=== PATIENT | male | born 1970 | race Hispanic/Latino ===

== ENCOUNTER 2017-04-02 09:25 | Inpatient (IN) | payer OTHER, MEDICAID ==
[2017-04-02 09:30] VITALS: BMI 22.1
--- NOTE | 2017-04-02 09:34 | ED PDOC ---
Psych Transfer Clearance - Clearance Statement Clearance Statement: Reviewed vital signs, lab results and transfer papers. Patient clinically stable for psychiatric admission.
[2017-04-02] MEDS ORDERED: DiphenhydrAMINE 50 mg/ml Inj IM PRN (11:18)
[2017-04-02] MEDS ORDERED: Alum-Mag Hydrox-Simethicone Susp (30 mL) PO PRN (11:18)
[2017-04-02] MEDS ORDERED: Magnesium Hydroxide Susp 30 ml UD PO PRN (11:18)
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
--- NOTE | 2017-04-02 13:54 | PCM.BM ---
Treatment Plan Problems - Problems identified on initial assessmt Problem 1 Date Initiated: 04/02/17 Treatment assets and liabiliti Patient Assests: adapts well, cooperative, resourceful, self-reliant, ADL independent, negotiates basic needs Patient Liabilities: live alone, financial problems, poor support system, relationship conflicts - Milieu Protocol Maintain good personal hygiene: daily Encourage regular showers, daily Remind patient to perform daily oral care, daily Assist patient to perform ADL's Maintain personal safety: every shift Educate patient to report safety concerns to staff, every shift Monitor environment for contraband/sharps Medication safety: Monitor for expected outcome, potential side effects: every shift, Assess barriers to learning: every shift, Assess readiness for medication education: every shift Milieu Narrative: admit to 3np for safety and observation gather collateral information neurology/hospitalist consult restart medications encourage participation in groups disposition planning Discharge/Continuing Care - Treatment Team Participation Patient/Family/SO Statement: admit to 3np for safety and observation gather collateral information neurology/hospitalist consult restart medications encourage participation in groups disposition planning
--- NOTE | 2017-04-02 14:14 | PCM.BM ---
<Adriana Burciaga - Last Filed: 04/02/17 14:25> Treatment Plan Problems - Problems identified on initial assessmt Social Isolation Date Initiated: 04/02/17 Time Initiated: 14:26 Assessment reference: NA Status: Active Treatment assets and liabiliti Patient Assests: adapts well, cooperative, resourceful, self-reliant, ADL independent, negotiates basic needs Patient Liabilities: live alone, financial problems, poor support system, relationship conflicts - Milieu Protocol Maintain good personal hygiene: daily Encourage regular showers, daily Remind patient to perform daily oral care, daily Assist patient to perform ADL's Maintain personal safety: every shift Educate patient to report safety concerns to staff, every shift Monitor environment for contraband/sharps Medication safety: Monitor for expected outcome, potential side effects: every shift, Assess barriers to learning: every shift, Assess readiness for medication education: every shift Milieu Narrative: admit to 3np for safety and observation gather collateral information neurology/hospitalist consult restart medications encourage participation in groups disposition planning Discharge/Continuing Care - Treatment Team Participation Patient/Family/SO Statement: admit to 3np for safety and observation gather collateral information neurology/hospitalist consult restart medications encourage participation in groups disposition planning <Ronal Ocampo - Last Filed: 04/03/17 09:59> Family Contact Family involvement: No known Family/SO Family contact name: Pt denied family/SO - Goals for Treatment Patient goals for treatment: Reduction of depressive symptoms and SI. Discharge/Continuing Care - Education Needs Education Needs: Patient Medication, Patient Coping Skills, Patient Community resources, Patient Aftercare Safety Plan - Discharge Discharge Criteria: Free of Suicidal thoughts, Free of agitation, Normal sleep pattern, Reduction of target symptoms Discharge to:: Home - Treatment Team Participation Discussed with Family/SO: No
--- NOTE | 2017-04-02 15:48 | CP.PCM.CON ---
History of Present Illness - History of Present Illness History of Present Illness: 46 yo male with history of Seizure DO secondary to head trauma and Asthma admitted to psyche unit because of suicidal intent. Review of Systems - Review of Systems All systems: reviewed and no additional remarkable complaints except (aside from those mentioned above, 12 point system review were negative by me) Past Patient History - Tetanus Immunizations Tetanus Immunization: Unknown - Past Social History Smoking Status: Heavy Smoker > 10 Cigarettes Daily Alcohol: None Drugs: Denies - CARDIAC Hx Cardiac Disorders: No - PULMONARY Hx Respiratory Disorders: Yes Hx Asthma: Yes (x 10 yrs) - NEUROLOGICAL Hx Neurological Disorder: No - HEENT Hx HEENT Problems: No - RENAL Hx Chronic Kidney Disease: No - ENDOCRINE/METABOLIC Hx Endocrine Disorders: No - HEMATOLOGICAL/ONCOLOGICAL Hx Blood Disorders: No - INTEGUMENTARY Hx Dermatological Problems: No - MUSCULOSKELETAL/RHEUMATOLOGICAL Hx Musculoskeletal Disorders: No Other/Comment: hx sugery to l shoulder 10 yrs ago - GASTROINTESTINAL Hx Gastrointestinal Disorders: No - GENITOURINARY/GYNECOLOGICAL Hx Genitourinary Disorders: No - PSYCHIATRIC Hx Depression: Yes Hx Physical Abuse: No Hx Sexual Abuse: No Hx Substance Use: No - SURGICAL HISTORY Hx Surgeries: No Hx Open Reduction Internal Fixation: Yes (ORIF of fractured right metatarsals, left shoulder surgery) Hx Orthopedic Surgery: Yes (ORIF of fractured right metatarsals, left shoulder surgery) - ANESTHESIA Hx Anesthesia: Yes Hx Anesthesia Reactions: No Meds Allergies/Adverse Reactions: Allergies Allergy/AdvReac Type Severity Reaction Status Date / Time No Known Allergies Allergy Verified 04/02/17 09:32 - Medications Medications: Current Medications Acetaminophen (Tylenol 325mg Tab) 650 mg PO Q4 PRN PRN Reason: Pain, moderate (4-7) Al Hydrox/Mg Hydrox/Simethicone (Maalox Plus 30 Ml) 30 ml PO Q4 PRN PRN Reason: Dyspepsia Diphenhydramine HCl (Benadryl) 50 mg IM Q6 PRN PRN Reason: Extrapyramidal S/S Unable PO Diphenhydramine HCl (Benadryl) 50 mg PO Q6 PRN PRN Reason: Extrapyramidal Symptoms Duloxetine HCl (Cymbalta) 60 mg PO DAILY PRIYANKA Gabapentin (Neurontin) 600 mg PO TID PRIYANKA Last Admin: 04/02/17 12:32 Dose: 600 mg Haloperidol (Haldol) 5 mg PO Q4 PRN PRN Reason: Agitation Haloperidol Lactate (Haldol) 5 mg IM Q4 PRN PRN Reason: Agitation, Unable to Take PO Lorazepam (Ativan) 2 mg IM Q4 PRN PRN Reason: Anxiety/Agitation,Unable PO Lorazepam (Ativan) 2 mg PO Q4 PRN PRN Reason: Anxiety/Agitation Magnesium Hydroxide (Milk Of Magnesia) 30 ml PO HS PRN PRN Reason: Constipation Nicotine (Nicoderm Cq) 1 patch TD DAILY [facility] Last Admin: 04/02/17 12:32 Dose: 1 patch Phenobarbital (Phenobarbital Tab) 60 mg PO Q8H [facility] Last Admin: 04/02/17 12:31 Dose: 60 mg Prazosin HCl (Minipress) 1 mg PO AMHS [facility] Physical Exam - Constitutional Appears: No Acute Distress - Head Exam Head Exam: ATRAUMATIC - Eye Exam Eye Exam: absent: Scleral icterus - ENT Exam ENT Exam: Mucous Membranes Moist - Neck Exam Neck exam: Negative for: Meningismus - Respiratory Exam Respiratory Exam: absent: Rhonchi, Wheezes, Respiratory Distress - Cardiovascular Exam Cardiovascular Exam: REGULAR RHYTHM, +S1, +S2 - GI/Abdominal Exam GI & Abdominal Exam: Soft. absent: Tenderness - Rectal Exam Rectal Exam: Deferred - Extremities Exam Extremities exam: Negative for: calf tenderness, pedal edema - Neurological Exam Neurological exam: Alert, Oriented x3 - Psychiatric Exam Psychiatric exam: Normal Affect - Skin Skin Exam: Dry, Intact Results - Vital Signs Recent Vital Signs: Last Vital Signs Temp 98.2 F 04/02/17 09:27 Pulse 77 04/02/17 09:27 Resp 20 04/02/17 10:51 BP 113/65 04/02/17 09:27 Pulse Ox 98 04/02/17 09:33 Assessment & Plan (1) Suicidal intent Status: Acute Comment: psyche is managing (2) Seizure disorder Status: Acute Priority: Medium Comment: on Phenobarbital 60mg PO q 8hrs. Neurontin 600mg PO TID (3) Asthma Status: Acute Comment: Albuterol inhaler 2 puffs q 4hrs prn for wheezing/SOB
[2017-04-02 16:20] VITALS: O2SAT 100
[2017-04-02] MEDS: Lacosamide 100 MG Tab PO SCH (16:35)
[2017-04-02] MEDS ORDERED: Albuterol 0.042% Inhal Sol (1.25 mg/3 mL) UD INH PRN (19:29)
[2017-04-02] MEDS ORDERED: Albuterol 0.083% Inhal Sol (2.5 mg/3 mL) UD INH PRN (20:00)
[2017-04-03 07:45] LABS: CHOLESTEROL 123 mg/dL (0-199)
[2017-04-03] MEDS: Lacosamide 100 MG Tab PO SCH ×2 (08:44→16:44)
--- NOTE | 2017-04-03 10:59 | PCM.PYCHPN ---
Psychiatric Progress Note - Psychiatric Progress Note Patient seen today, length of contact: in treatment team Patient Chief Complaint: i need to go saturday Problems Identified/Issues Discussed: pt is reporting he feels better. he reports that he likes the new seizure medication that was started. denies any suicidal thoughts today. anxious about his follow up care. he states he is starting a job saturday and needs to be out of the hospital by then. he denies any medication side effects. Medical Problems: seizure disorder, htn- appreciate hospitalist/neurology consults Medication Change: No Medical Record Reviewed: Yes Mental Status Examination - Cognitive Function Orientation: Person, Place, Situation, Time Memory: Intact Attention: WNL Concentration: WNL Association: WNL Fund of Knowledge: [facility] Decription of patient's judgement and insights: fair - Mood Mood: Anxious - Affect Affect: Broad - Speech Speech: Appropriate - Formal Thought Process Formal Thought Process: No Impairment - Suicidal Ideation Suicidal Ideation: No - Homicidal Ideation Homicidal Ideation: No Goal/Treatment Plan - Goal/Treatment Plan Need for Continued Stay: Remain at risks for inpatient hospitalization Progress Toward Problem(s) and Goals/Treatment Plan: major depression continue current treatment discharge saturday with outpt follow up appreciate consultants participation in pt's care Estimated Date of D/C: 04/05/17 - Smoking Cessation Smoking Cessation Initiated: Yes
--- NOTE | 2017-04-03 14:52 | CP.PCM.CON ---
History of Present Illness - History of Present Illness History of Present Illness: Mr. 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 with an MRA every 3-6 months (last one 1.5 months ago), who is currently admitted to the psychiatric unit for suicidal ideation. He previously on Klonapin .5 mg BID and phenobarbitol 60 mg TID, but was recently started on Keppra 500 mg BID. He states that he does feel that his mood has changes and he is more irritable with mood swings since starting Keppra. He is not sure when his last seizure was, but thinks he may have had one 2 months ago. He usually has one every 6 months or so. Review of Systems - Review of Systems All systems: reviewed and no additional remarkable complaints except Past Patient History - CARDIAC Hx Cardiac Disorders: No - PULMONARY Hx Respiratory Disorders: Yes Hx Asthma: Yes (x 10 yrs) - NEUROLOGICAL Hx Neurological Disorder: No - HEENT Hx HEENT Problems: No - RENAL Hx Chronic Kidney Disease: No - ENDOCRINE/METABOLIC Hx Endocrine Disorders: No - HEMATOLOGICAL/ONCOLOGICAL Hx Blood Disorders: No - INTEGUMENTARY Hx Dermatological Problems: No - MUSCULOSKELETAL/RHEUMATOLOGICAL Hx Musculoskeletal Disorders: No Other/Comment: hx sugery to l shoulder 10 yrs ago - GASTROINTESTINAL Hx Gastrointestinal Disorders: No - GENITOURINARY/GYNECOLOGICAL Hx Genitourinary Disorders: No - PSYCHIATRIC Hx Depression: Yes Hx Physical Abuse: No Hx Sexual Abuse: No Hx Substance Use: No - SURGICAL HISTORY Hx Surgeries: No - ANESTHESIA Hx Anesthesia: Yes Meds Allergies/Adverse Reactions: Allergies Allergy/AdvReac Type Severity Reaction Status Date / Time No Known Allergies Allergy Verified 04/02/17 09:32 - Medications Medications: Current Medications Acetaminophen (Tylenol 325mg Tab) 650 mg PO Q4 PRN PRN Reason: Pain, moderate (4-7) Al Hydrox/Mg Hydrox/Simethicone (Maalox Plus 30 Ml) 30 ml PO Q4 PRN PRN Reason: Dyspepsia Diphenhydramine HCl (Benadryl) 50 mg IM Q6 PRN PRN Reason: Extrapyramidal S/S Unable PO Diphenhydramine HCl (Benadryl) 50 mg PO Q6 PRN PRN Reason: Extrapyramidal Symptoms Duloxetine HCl (Cymbalta) 60 mg PO DAILY [facility] Gabapentin (Neurontin) 600 mg PO TID [facility] Last Admin: 04/02/17 12:32 Dose: 600 mg Haloperidol (Haldol) 5 mg PO Q4 PRN PRN Reason: Agitation Haloperidol Lactate (Haldol) 5 mg IM Q4 PRN PRN Reason: Agitation, Unable to Take PO Levetiracetam (Keppra) 500 mg PO BID [facility] Lorazepam (Ativan) 2 mg IM Q4 PRN PRN Reason: Anxiety/Agitation,Unable PO Lorazepam (Ativan) 2 mg PO Q4 PRN PRN Reason: Anxiety/Agitation Magnesium Hydroxide (Milk Of Magnesia) 30 ml PO HS PRN PRN Reason: Constipation Nicotine (Nicoderm Cq) 1 patch TD DAILY [facility] Last Admin: 04/02/17 12:32 Dose: 1 patch Phenobarbital (Phenobarbital Tab) 60 mg PO Q8H [facility] Last Admin: 04/02/17 12:31 Dose: 60 mg Prazosin HCl (Minipress) 1 mg PO AMHS [facility] Physical Exam - Constitutional Appears: Well - Head Exam Head Exam: ATRAUMATIC, NORMAL INSPECTION, NORMOCEPHALIC - Eye Exam Eye Exam: EOMI, Normal appearance, PERRL - ENT Exam ENT Exam: Mucous Membranes Moist, Normal Exam - Neck Exam Neck exam: Positive for: Normal Inspection - Respiratory Exam Respiratory Exam: Clear to Auscultation Bilateral, NORMAL BREATHING PATTERN - Cardiovascular Exam Cardiovascular Exam: REGULAR RHYTHM, +S1, +S2 - GI/Abdominal Exam GI & Abdominal Exam: Normal Bowel Sounds, Soft. absent: Tenderness - Rectal Exam Rectal Exam: Deferred - Extremities Exam Extremities exam: Positive for: normal inspection - Back Exam Back exam: NORMAL INSPECTION - Neurological Exam Neurological exam: Alert, CN II-XII Intact, Normal Gait, Oriented x3, Reflexes Normal - Psychiatric Exam Psychiatric exam: Anxious, Depressed - Skin Skin Exam: Dry, Intact, Normal Color, Warm Results - Vital Signs Recent Vital Signs: Last Vital Signs Temp 98.2 F 04/02/17 09:27 Pulse 77 04/02/17 09:27 Resp 20 04/02/17 10:51 BP 113/65 04/02/17 09:27 Pulse Ox 98 04/02/17 09:33 Assessment & Plan (1) Seizure disorder Assessment and Plan: The patient may be having side-effects of agitation and irritability with Keppra. I recommend continuing phenobarbitol at the current dose, and continuing home dose of Klonapin. However, Keppra should be switched with Vimpat 100 mg BID. I recommend stopping Keppra, and switching the next dose of Keppra with Vimpat and continuing 100 mg BID. Thank you. Status: Acute Priority: Medium
--- NOTE | 2017-04-03 15:10 | CP.PCM.PN ---
Subjective - Date & Time of Evaluation Date of Evaluation: 04/03/17 Time of Evaluation: 15:08 - Subjective Subjective: Mr. Moraes was seen and examined at the bedside. He denies any seizures, lightheadedness, dizziness. headache, nausea, or any vision impairment. He is happy and contented with his treatment. There was no untoward events overnight. Objective - Vital Signs/Intake and Output Vital Signs (last 24 hours): Temp Pulse Resp BP Pulse Ox 96.9 F L 63 18 139/94 H 100 04/03/17 09:00 04/03/17 09:00 04/03/17 09:00 04/03/17 09:00 04/02/17 16:19 - Medications Medications: Current Medications Acetaminophen (Tylenol 325mg Tab) 650 mg PO Q4 PRN PRN Reason: Pain, moderate (4-7) Al Hydrox/Mg Hydrox/Simethicone (Maalox Plus 30 Ml) 30 ml PO Q4 PRN PRN Reason: Dyspepsia Albuterol Sulfate (Albuterol 0.083% Inhal Jeanette (2.5 Mg/3 Ml) Ud) 2.5 mg INH RQ4 PRN PRN Reason: Shortness of Breath Clonazepam (Klonopin) 1 mg PO BID [facility] Last Admin: 04/03/17 09:55 Dose: 1 mg Diphenhydramine HCl (Benadryl) 50 mg IM Q6 PRN PRN Reason: Extrapyramidal S/S Unable PO Diphenhydramine HCl (Benadryl) 50 mg PO Q6 PRN PRN Reason: Extrapyramidal Symptoms Duloxetine HCl (Cymbalta) 60 mg PO DAILY [facility] Last Admin: 04/03/17 08:44 Dose: 60 mg Gabapentin (Neurontin) 600 mg PO TID [facility] Last Admin: 04/03/17 14:08 Dose: 600 mg Haloperidol (Haldol) 5 mg PO Q4 PRN PRN Reason: Agitation Haloperidol Lactate (Haldol) 5 mg IM Q4 PRN PRN Reason: Agitation, Unable to Take PO Lorazepam (Ativan) 2 mg IM Q4 PRN PRN Reason: Anxiety/Agitation,Unable PO Lorazepam (Ativan) 2 mg PO Q4 PRN PRN Reason: Anxiety/Agitation Magnesium Hydroxide (Milk Of Magnesia) 30 ml PO HS PRN PRN Reason: Constipation Nicotine (Nicoderm Cq) 1 patch TD DAILY [facility] Last Admin: 04/03/17 08:44 Dose: 1 patch Phenobarbital (Phenobarbital Tab) 60 mg PO Q8@0100,0900,1700 [facility] Last Admin: 04/03/17 08:45 Dose: 60 mg Prazosin HCl (Minipress) 1 mg PO AMHS [facility] Last Admin: 04/03/17 08:44 Dose: 1 mg - Constitutional Appears: Well - Head Exam Head Exam: ATRAUMATIC, NORMAL INSPECTION, NORMOCEPHALIC - Neurological Exam Neurological Exam: Alert, Awake, CN II-XII Intact, Normal Gait, Oriented x3 Neuro motor strength exam: Left Upper Extremity: 5, Right Upper Extremity: 5, Left Lower Extremity: 5, Right Lower Extremity: 5 Additional comments: He is able to follow simple commands, respond appropriately. Assessment and Plan (1) Seizure disorder Assessment & Plan: Case discussed with Dr. Guerra, continue current medical and psychiatric regimen. Status: Acute
--- NOTE | 2017-04-04 08:57 | PCM.PYCHPN ---
Psychiatric Progress Note - Psychiatric Progress Note Patient seen today, length of contact: discussed with team Patient Chief Complaint: i feel better Problems Identified/Issues Discussed: pt continues to deny side effects. he states that his mood is improved. he is anticipating discharge tomorrow. attends groups. Medical Problems: seizure disorder, htn- appreciate hospitalist/neurology consults Medication Change: No Medical Record Reviewed: Yes Mental Status Examination - Cognitive Function Orientation: Person, Place, Situation, Time Memory: Intact Attention: WNL Concentration: WNL Association: WNL Fund of Knowledge: WN Decription of patient's judgement and insights: fair - Mood Mood: Anxious - Affect Affect: Broad - Speech Speech: Appropriate - Formal Thought Process Formal Thought Process: No Impairment Psychotic Thoughts and Behaviors: denies a/v hallucinations - Suicidal Ideation Suicidal Ideation: No - Homicidal Ideation Homicidal Ideation: No Goal/Treatment Plan - Goal/Treatment Plan Need for Continued Stay: Remain at risks for inpatient hospitalization, Discharge may exacerbated symptoms Progress Toward Problem(s) and Goals/Treatment Plan: major depression continue current treatment discharge tomorrow with out pt follow up appreciate consultants participation in pt's care Estimated Date of D/C: 04/05/17
[2017-04-04 09:20] VITALS: BP 127/79; PULSE 61; RESP 18; TEMP 97.1
[2017-04-04] MEDS: Lacosamide 100 MG Tab PO SCH (10:08)
--- NOTE | 2017-04-04 14:11 | PCM.PYCHDC ---
Mental Status Examination - Mental Status Examination Orientation: Person, Place, Situation, Time Memory: Intact Mood: Neutral Affect: Broad Speech: Appropriate Attention: WNL Concentration: WNL Association: WNL Fund of Knowledge: WNL Formal Thought Process: No Impairment Description of patient's judgement and insight: fair Psychotic Thoughts and Behaviors: denies a/v hallucinations Suicidal Ideation: No Current Homicidal Ideation?: No Plan: denies any suicidal or homicidal thoughts Discharge Summary - Discharge Note Reason for Hospitalization: anxiety, depression, suicidal thoughts Psychiatric History (includes Medical, Family, Personal Hx): history of ptsd, adhd, depression Consultations:: List each consultation separately and include: 1. Reason for request. 2. Findings. 3. Follow-up Consultations: seen by neurology and hospitalist Summary of Hospital Course include:: 1. Description of specific treatment plan utilized for patients during their course of treatmen. 2. Summarize the time- course for resolution of acute symptoms and/or regressed behaviors. 3. Describe issues identified and worked on during hospitalization. 4. Describe medication utilized. 5. Describe medical problems identified and treated. 6. Reassessment of suicide risk Summary of Hospital Course: 46 yo male, living in a boarding home in [place], history of ptsd, depression , seizures. pt presented at [facility] ER claiming he had taken extra phenobarb and was having thoughts to kill himself. he wanted to get help so he would not act on his suicidal thoughts. he denies other suicide attempts. 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 he reports he also was recently dx with an aneurism at [facility] when an inpt there and has a follow up neurology appointment for this. apparently he is having some relationship stressors. he reports low energy, poor concentration, intrusive negative thoughts, feeling easily frustrated and hopeless/helpless. he has trouble sleeping. he reports he wants to get help and does not want to harm self here in hospital. he denies any manic/psychotic symptoms hospital course: pt was admitted to [facility] and oriented to the unit. pt placed on routine safety protocols. pt was started on his home meds- effexor was not restarted and pt was not started on lamicta. neurology stopped the keppra and started vimpat which the pt found helpful and stated reduced his anxiety. he was denying suicidal thoughts and was goal directed. he asked to leave early as he was starting a new job. he was denying suicidal or homicidal thoughts at the time of discharge. - Final Diagnosis (DSM 5) Condition upon Discharge: FAIR DSM 5: major depression recurrent moderate ptsd seizure disorder Disposition: HOME/ ROUTINE Follow-up Treatment Plan: follow up with aftercare as directed take medication as prescribed do not use alcohol, tobacco or other illicit substances call 911 if any suicidal or homicidal thoughts Prescriptions/Medication Reconciliation: Lacosamide [Vimpat] 100 mg PO BID #14 tab Nicotine 21 mg/24 hr [Nicoderm Cq] 1 patch TD DAILY #30 patch - Smoking Cessation Smoking Cessation Medication prescribed: Yes - Antipsychotic Medications Pt discharged on 2 or more routine antipsychotic medications: No
--- NOTE | 2017-04-04 14:34 | CP.PCM.PN ---
Subjective - Date & Time of Evaluation Date of Evaluation: 04/04/17 Time of Evaluation: 14:32 - Subjective Subjective: Mr. Moraes was seen and examined at the bedside. He denies hearing any voices and stated that his mood has improved tremendously. He denies any headache, dizziness, lightheaded, nausea, or any gait instability. There was no untoward events overnight. Objective - Vital Signs/Intake and Output Vital Signs (last 24 hours): Temp Pulse Resp BP Pulse Ox 97.1 F L 61 18 127/79 100 04/04/17 09:00 04/04/17 09:00 04/04/17 09:00 04/04/17 09:00 04/02/17 16:19 - Medications Medications: Current Medications Acetaminophen (Tylenol 325mg Tab) 650 mg PO Q4 PRN PRN Reason: Pain, moderate (4-7) Last Admin: 04/03/17 15:10 Dose: 650 mg Al Hydrox/Mg Hydrox/Simethicone (Maalox Plus 30 Ml) 30 ml PO Q4 PRN PRN Reason: Dyspepsia Albuterol Sulfate (Albuterol 0.083% Inhal Jeanette (2.5 Mg/3 Ml) Ud) 2.5 mg INH RQ4 PRN PRN Reason: Shortness of Breath Clonazepam (Klonopin) 1 mg PO BID [facility] Last Admin: 04/04/17 09:04 Dose: 1 mg Diphenhydramine HCl (Benadryl) 50 mg IM Q6 PRN PRN Reason: Extrapyramidal S/S Unable PO Diphenhydramine HCl (Benadryl) 50 mg PO Q6 PRN PRN Reason: Extrapyramidal Symptoms Diphenhydramine HCl (Benadryl) 50 mg PO HS PRN PRN Reason: Sleep Last Admin: 04/03/17 22:02 Dose: 50 mg Duloxetine HCl (Cymbalta) 60 mg PO DAILY [facility] Last Admin: 04/04/17 09:04 Dose: 60 mg Gabapentin (Neurontin) 600 mg PO TID [facility] Last Admin: 04/04/17 13:44 Dose: 600 mg Haloperidol (Haldol) 5 mg PO Q4 PRN PRN Reason: Agitation Haloperidol Lactate (Haldol) 5 mg IM Q4 PRN PRN Reason: Agitation, Unable to Take PO Lorazepam (Ativan) 2 mg IM Q4 PRN PRN Reason: Anxiety/Agitation,Unable PO Lorazepam (Ativan) 2 mg PO Q4 PRN PRN Reason: Anxiety/Agitation Magnesium Hydroxide (Milk Of Magnesia) 30 ml PO HS PRN PRN Reason: Constipation Nicotine (Nicoderm Cq) 1 patch TD DAILY [facility] Last Admin: 04/04/17 09:03 Dose: 1 patch Phenobarbital (Phenobarbital Tab) 60 mg PO Q8@0100,0900,1700 [facility] Last Admin: 04/04/17 09:04 Dose: 60 mg Prazosin HCl (Minipress) 1 mg PO AMHS [facility] Last Admin: 04/04/17 09:04 Dose: 1 mg - Constitutional Appears: Well - Neurological Exam Neurological Exam: Alert, Awake, CN II-XII Intact, Normal Gait, Oriented x3 Neuro motor strength exam: Left Upper Extremity: 5, Right Upper Extremity: 5, Left Lower Extremity: 5, Right Lower Extremity: 5 Additional comments: Neurological improved from previous examination. He is able to respond appropriately and speech is clear. Assessment and Plan (1) Seizure disorder Assessment & Plan: Case discussed with Dr. Guerra, continue current medical treatment and follow up as an outpatient for treatment of seizures. Status: Acute
== END 2017-04-04 15:26 | disposition home or self-care (01) | DRG 885 ==
LOC: H.ER 09:25 → H.ERHOLD 09:33 → H.PSYCH 10:30
PROVIDERS: ADMIT Psychiatry & Neurology Psychiatry; ATTEND Psychiatry & Neurology Psychiatry
PROC: GZHZZZZ Group Psychotherapy (ICD-10-PCS; principal; 2017-04-02)
DX: F33.1 Major depressive disorder, recurrent, moderate (principal); G40.909 Epilepsy, unspecified, not intractable, without status epilepticus; R45.851 Suicidal ideations; F43.10 Post-traumatic stress disorder, unspecified; F90.9 Attention-deficit hyperactivity disorder, unspecified type; F17.210 Nicotine dependence, cigarettes, uncomplicated; J45.909 Unspecified asthma, uncomplicated; I10 Essential (primary) hypertension